=== PATIENT | female | born 1975 | race Caucasian/White ===

== ENCOUNTER 2020-11-01 09:46 | Inpatient (IN) | payer OTHER ==
[~2020-11-01] VITALS: Ht 157.5 cm; Wt 69.5 kg
[2020-11-01 10:48] LABS: BASOPHILS # (AUTO) 0.1 X10'3 (0-0.2); BASOPHILS % (AUTO) 0.4 % (0-1); EOSINOPHILS % (AUTO) 0.2 % (0-6); HEMATOCRIT 48.3 % (35.0-45.0); HEMOGLOBIN 16.2 g/dl (12.0-16.0); LYMPHOCYTES # (AUTO) 1.9 X10'3 (1.1-4.8); LYMPHOCYTES % (AUTO) 9.4 % (21-51); MEAN CORPUSCULAR HEMOGLOBIN 29.4 PG (27.0-31.0); MEAN CORPUSCULAR HGB CONC 33.7 g/dL (33.0-36.5); MEAN CORPUSCULAR VOLUME 87.5 FL (78-98); MEAN PLATELET VOLUME 8.8 FL (7.4-10.4); MONOCYTES # (AUTO) 0.6 X10'3 (0-0.9); NEUTROPHILS # (AUTO) 17.8 X10'3 (1.8-7.7); PLATELET COUNT 279 X10'3 (140-440); RED BLOOD COUNT 5.52 X10'6 (4.20-5.60); RED CELL DISTRIBUTION WIDTH 14.3 % (11.5-14.5); WHITE BLOOD COUNT 20.5 X10'3 (4.5-11.0)
[2020-11-01 10:58] LABS: ALANINE AMINOTRANSFERASE 38 U/L (12-78); ALBUMIN 3.8 G/DL (3.4-5.0); ALBUMIN/GLOBULIN RATIO 1.1 (1.1-1.5); ALKALINE PHOSPHATASE 112 IU/L (46-116); ANION GAP 9 (8-16); ASPARTATE AMINO TRANSFERASE 28 U/L (10-37); BILIRUBIN,TOTAL 0.6 MG/DL (0.1-1.0); BLOOD UREA NITROGEN 10 MG/DL (7-18); CALCIUM 8.7 MG/DL (8.5-10.1); CHLORIDE 106 MMOL/L (99-107); CREATININE 0.83 MG/DL (0.40-0.90); GLUCOSE 98 MG/DL (70-104); LIPASE 59 U/L (73-393); POTASSIUM 4.5 MMOL/L (3.5-5.1); SODIUM 137 MMOL/L (135-145); TOTAL PROTEIN 7.3 G/DL (6.4-8.2); eGFR 74 ML/MIN
[2020-11-01 11:01] LABS: URINE HCG NEGATIVE (NEG)
[2020-11-01 11:04] LABS: CLARITY,URINE SLIGHTLY CLOUDY (Clear); COLOR,URINE YELLOW (Yellow); GLUCOSE, URINE NEGATIVE (Neg); KETONES,URINE NEGATIVE (Neg); LEUKOCYTE ESTERASE ,URINE NEGATIVE (Neg); NITRITES, URINE NEGATIVE (Neg); OCCULT BLOOD,URINE NEGATIVE (Neg); PROTEIN,URINE NEGATIVE (Neg); UROBILINOGEN,URINE 0.2 E.U/dL (0.2-1.0)
[2020-11-01 11:08] LABS: UA COLLECTION TYPE CLN CATCH MIDSTREAM
[2020-11-01 11:13] LABS: BACTERIA,URINE 3+ /HPF (Neg); RBC,URINE 0-2 /HPF (0-2); WBC,URINE 0-4 /HPF (0-4)
[2020-11-01 11:15] LABS: SQUAMOUS EPITHELIAL CELL,UR MODERATE /LPF (FEW)
[2020-11-01] MEDS ORDERED: iohexol 300mg/ml 100ml inj. ONE (12:23)
[2020-11-01] MEDS ORDERED: morphine 4 MG/ML inj SYRINge IV ONE (12:25)
[2020-11-01] MEDS ORDERED: piperacillin/tazo 3.375gm/50ml 50 ML IV ONE (14:05)
[2020-11-01] MEDS ORDERED: magnesium hydroxide 30ml (MOM) UD suspension PO PRN (14:40)
[2020-11-01] MEDS ORDERED: potassium Cl 40MEQ/1/2NS 520ml 520 ML IV PRN ×2 (14:40)
[2020-11-01] MEDS ORDERED: acetaminophen 325mg tablet PO PRN ×2 (14:40)
[2020-11-01] MEDS ORDERED: magnesium 4gm in 100ml NS 100 ML IV PRN (14:40)
[2020-11-01] MEDS ORDERED: morphine 2 MG/ML inj. syringe IV PRN ×2 (14:40)
[2020-11-01] MEDS ORDERED: HYDROcodone/acetaminophen 5mg/325mg tablet PO PRN (14:40)
[2020-11-01] MEDS ORDERED: magnesium Cl slow-release 64mg tablet PO PRN (14:40)
[2020-11-01] MEDS ORDERED: magnesium 2GM in 50ml NS 50 ML IV PRN (14:40)
[2020-11-01] MEDS ORDERED: HYDROmorphone inj. 0.5 MG/0.5 ML DISP.SYRIN IV PRN (14:40)
[2020-11-01] MEDS ORDERED: mag hydrox/Alum hydrox/simeth 30ml oral suspension PO PRN (14:40)
[2020-11-01] MEDS ORDERED: potassium Cl 20 mEq SR tablet PO PRN ×2 (14:40)
[2020-11-01] MEDS: nicotine 14mg patch - 24hr TD SCH (15:35)
[2020-11-01] MEDS ORDERED: piperacillin/tazo 3.375gm/50ml 50 ML IV SCH (16:00)
[2020-11-01] MEDS: normal saline 1000ml 1,000 ML IV SCH (16:48)
[2020-11-01] MEDS ORDERED: NO HOME MEDS (16:58)
--- NOTE | 2020-11-01 18:37 | NUR ---
received report from the ER nurse regarding patient, had the opportunity to ask questions and review the chart.
[2020-11-01 19:15] VITALS: BP 120/75
[2020-11-01] MEDS: K and/or MAG REPLACEMENT MC SCH (20:00)
[2020-11-01] MEDS: metroNIDAZOLE-Flagyl 500mg/NS 100 ML IV SCH (20:36)
[2020-11-01] MEDS: heparin, porcine 5000 units/ml vial SQ SCH (20:36)
[2020-11-01] MEDS ORDERED: temazepam 15mg capsule PO PRN (21:00)
[2020-11-01] MEDS: piperacillin/tazo 3.375gm/50ml 50 ML IV SCH (22:52)
[2020-11-01] MEDS: HYDROcodone/acetaminophen 10/325mg tab PO PRN (23:50)
[2020-11-02 00:10] VITALS: BP 120/83
[2020-11-02] MEDS: normal saline 1000ml 1,000 ML IV SCH ×4 (03:44→22:40)
[2020-11-02] MEDS: piperacillin/tazo 3.375gm/50ml 50 ML IV SCH (05:42)
[2020-11-02] MEDS: HYDROcodone/acetaminophen 10/325mg tab PO PRN ×2 (05:50→12:56)
[2020-11-02 06:11] LABS: BASOPHILS # (AUTO) 0.1 X10'3 (0-0.2); BASOPHILS % (AUTO) 0.4 % (0-1); EOSINOPHILS # (AUTO) 0.1 X10'3 (0-0.9); EOSINOPHILS % (AUTO) 0.3 % (0-6); HEMATOCRIT 39.8 % (35.0-45.0); HEMOGLOBIN 13.2 g/dl (12.0-16.0); LYMPHOCYTES # (AUTO) 1.9 X10'3 (1.1-4.8); MEAN CORPUSCULAR HEMOGLOBIN 29.6 PG (27.0-31.0); MEAN CORPUSCULAR HGB CONC 33.3 g/dL (33.0-36.5); MEAN CORPUSCULAR VOLUME 88.9 FL (78-98); MEAN PLATELET VOLUME 9.1 FL (7.4-10.4); MONOCYTES # (AUTO) 0.4 X10'3 (0-0.9); MONOCYTES % (AUTO) 2.9 % (2-12); NEUTROPHILS # (AUTO) 12.1 X10'3 (1.8-7.7); NEUTROPHILS % (AUTO) 83.4 % (42-75); PLATELET COUNT 201 X10'3 (140-440); RED BLOOD COUNT 4.48 X10'6 (4.20-5.60); RED CELL DISTRIBUTION WIDTH 14.2 % (11.5-14.5); WHITE BLOOD COUNT 14.5 X10'3 (4.5-11.0)
--- NOTE | 2020-11-02 06:20 | NUR ---
Patient in room [facility]. I have received report from OLIVER Gonzalez and had the opportunity to ask questions and assume patient care.
[2020-11-02 06:30] VITALS: BP 131/79
[2020-11-02 06:34] LABS: ALANINE AMINOTRANSFERASE 48 U/L (12-78); ALBUMIN 2.8 G/DL (3.4-5.0); ALBUMIN/GLOBULIN RATIO 0.8 (1.1-1.5); ALKALINE PHOSPHATASE 110 IU/L (46-116); ANION GAP 11 (8-16); ASPARTATE AMINO TRANSFERASE 31 U/L (10-37); BLOOD UREA NITROGEN 9 MG/DL (7-18); BUN/CREATININE RATIO 13.8 (6.6-38.0); CHLORIDE 105 MMOL/L (99-107); CREATININE 0.65 MG/DL (0.40-0.90); GLUCOSE 79 MG/DL (70-104); MAGNESIUM 2.1 MG/DL (1.5-2.4); POTASSIUM 3.9 MMOL/L (3.5-5.1); SODIUM 138 MMOL/L (135-145); TOTAL CARBON DIOXIDE 22.2 MMOL/L (24-32); TOTAL PROTEIN 6.1 G/DL (6.4-8.2); eGFR > 90 ML/MIN
--- NOTE | 2020-11-02 06:47 | NUR ---
Problems reprioritized. Patient report given, questions answered & plan of care reviewed with Ada RN.
[2020-11-02] MEDS: K and/or MAG REPLACEMENT MC SCH ×2 (07:30→19:35)
[2020-11-02] MEDS: nicotine 14mg patch - 24hr TD SCH (08:00)
[2020-11-02] MEDS: heparin, porcine 5000 units/ml vial SQ SCH ×2 (08:00→19:32)
[2020-11-02] MEDS: metroNIDAZOLE-Flagyl 500mg/NS 100 ML IV SCH ×2 (08:25→19:31)
[2020-11-02] MEDS: ondansetron/PF 4mg/2ml inj IV PRN ×2 (08:30→17:55)
[2020-11-02 11:00] VITALS: BP 112/61
--- NOTE | 2020-11-02 18:10 | NUR ---
Problems reprioritized. Patient report given, questions answered & plan of care reviewed with OLIVER Shaw.
--- NOTE | 2020-11-02 18:30 | NUR ---
Patient in room [facility]. I have received report from Charlette BOYD and had the opportunity to ask questions and assume patient care.
[2020-11-02 19:00] VITALS: BP 123/82
[2020-11-02] MEDS: lactobacillus rhamnosus 10,000 MMU CELLS/CAPSULE PO SCH (19:31)
[2020-11-03] VITALS: BP 148/86
[2020-11-03] MEDS: normal saline 1000ml 1,000 ML IV SCH ×3 (01:44→20:19)
[2020-11-03 05:53] LABS: BASOPHILS # (AUTO) 0.1 X10'3 (0-0.2); BASOPHILS % (AUTO) 0.4 % (0-1); EOSINOPHILS % (AUTO) 0.3 % (0-6); HEMATOCRIT 38.7 % (35.0-45.0); HEMOGLOBIN 12.9 g/dl (12.0-16.0); LYMPHOCYTES # (AUTO) 1.3 X10'3 (1.1-4.8); LYMPHOCYTES % (AUTO) 9.6 % (21-51); MEAN CORPUSCULAR HEMOGLOBIN 29.4 PG (27.0-31.0); MEAN CORPUSCULAR HGB CONC 33.3 g/dL (33.0-36.5); MEAN CORPUSCULAR VOLUME 88.1 FL (78-98); MONOCYTES # (AUTO) 0.4 X10'3 (0-0.9); MONOCYTES % (AUTO) 2.9 % (2-12); NEUTROPHILS # (AUTO) 12.1 X10'3 (1.8-7.7); NEUTROPHILS % (AUTO) 86.8 % (42-75); PLATELET COUNT 198 X10'3 (140-440); RED CELL DISTRIBUTION WIDTH 14.3 % (11.5-14.5)
[2020-11-03 06:08] LABS: ALANINE AMINOTRANSFERASE 29 U/L (12-78); ALBUMIN 2.8 G/DL (3.4-5.0); ALBUMIN/GLOBULIN RATIO 0.7 (1.1-1.5); ALKALINE PHOSPHATASE 136 IU/L (46-116); ANION GAP 13 (8-16); ASPARTATE AMINO TRANSFERASE 20 U/L (10-37); BILIRUBIN,TOTAL 1.2 MG/DL (0.1-1.0); BLOOD UREA NITROGEN 6 MG/DL (7-18); CALCIUM 8.3 MG/DL (8.5-10.1); CHLORIDE 104 MMOL/L (99-107); GLUCOSE 81 MG/DL (70-104); MAGNESIUM 1.9 MG/DL (1.5-2.4); POTASSIUM 3.9 MMOL/L (3.5-5.1); SODIUM 138 MMOL/L (135-145); TOTAL CARBON DIOXIDE 21.1 MMOL/L (24-32); TOTAL PROTEIN 6.6 G/DL (6.4-8.2); eGFR > 90 ML/MIN
--- NOTE | 2020-11-03 06:40 | NUR ---
Problems reprioritized. Patient report given, questions answered & plan of care reviewed with Desire BOYD.
--- NOTE | 2020-11-03 06:45 | NUR ---
Patient in room [facility]. I have received report from OLIVER ROUSE and had the opportunity to ask questions and assume patient care.
[2020-11-03 07:00] VITALS: BP 142/91
[2020-11-03] MEDS: K and/or MAG REPLACEMENT MC SCH ×2 (08:00→20:00)
[2020-11-03] MEDS: lactobacillus rhamnosus 10,000 MMU CELLS/CAPSULE PO SCH ×2 (09:20→20:19)
[2020-11-03] MEDS: metroNIDAZOLE-Flagyl 500mg/NS 100 ML IV SCH ×2 (09:20→20:19)
[2020-11-03] MEDS: heparin, porcine 5000 units/ml vial SQ SCH ×2 (09:21→20:21)
[2020-11-03 11:00] VITALS: BP 144/89
--- NOTE | 2020-11-03 18:13 | NUR ---
Patient in room [facility]. I have received report from OLIVER Phipps and had the opportunity to ask questions and assume patient care.
[2020-11-03 18:30] VITALS: BP 130/81
--- NOTE | 2020-11-03 18:54 | NUR ---
Problems reprioritized. Patient report given, questions answered & plan of care reviewed with OLIVER MURILLO.
[2020-11-03] MEDS: HYDROcodone/acetaminophen 10/325mg tab PO PRN (20:20)
[2020-11-04] VITALS: BP 121/83
[2020-11-04] MEDS: normal saline 1000ml 1,000 ML IV SCH (04:28)
--- NOTE | 2020-11-04 06:41 | NUR ---
Problems reprioritized. Patient report given, questions answered & plan of care reviewed with OLIVER Houser.
--- NOTE | 2020-11-04 06:46 | NUR ---
Patient in room [facility]. I have received report from Krissy BOYD and had the opportunity to ask questions and assume patient care.
[2020-11-04 06:47] LABS: BASOPHILS % (AUTO) 0.3 % (0-1); EOSINOPHILS # (AUTO) 0.1 X10'3 (0-0.9); EOSINOPHILS % (AUTO) 1.5 % (0-6); HEMATOCRIT 37.1 % (35.0-45.0); HEMOGLOBIN 12.5 g/dl (12.0-16.0); LYMPHOCYTES # (AUTO) 1.9 X10'3 (1.1-4.8); LYMPHOCYTES % (AUTO) 19.9 % (21-51); MEAN CORPUSCULAR HEMOGLOBIN 29.3 PG (27.0-31.0); MEAN CORPUSCULAR HGB CONC 33.6 g/dL (33.0-36.5); MEAN CORPUSCULAR VOLUME 87.2 FL (78-98); MEAN PLATELET VOLUME 8.8 FL (7.4-10.4); MONOCYTES # (AUTO) 0.6 X10'3 (0-0.9); MONOCYTES % (AUTO) 5.9 % (2-12); NEUTROPHILS % (AUTO) 72.4 % (42-75); PLATELET COUNT 214 X10'3 (140-440); RED BLOOD COUNT 4.25 X10'6 (4.20-5.60); RED CELL DISTRIBUTION WIDTH 14.1 % (11.5-14.5); WHITE BLOOD COUNT 9.6 X10'3 (4.5-11.0)
[2020-11-04 06:56] LABS: ALANINE AMINOTRANSFERASE 33 U/L (12-78); ALBUMIN 2.6 G/DL (3.4-5.0); ALBUMIN/GLOBULIN RATIO 0.7 (1.1-1.5); ALKALINE PHOSPHATASE 151 IU/L (46-116); ANION GAP 9 (8-16); ASPARTATE AMINO TRANSFERASE 19 U/L (10-37); BILIRUBIN,TOTAL 0.9 MG/DL (0.1-1.0); BLOOD UREA NITROGEN 5 MG/DL (7-18); BUN/CREATININE RATIO 9.1 (6.6-38.0); CALCIUM 8.3 MG/DL (8.5-10.1); CHLORIDE 108 MMOL/L (99-107); CREATININE 0.55 MG/DL (0.40-0.90); GLUCOSE 82 MG/DL (70-104); MAGNESIUM 1.9 MG/DL (1.5-2.4); POTASSIUM 3.8 MMOL/L (3.5-5.1); SODIUM 140 MMOL/L (135-145); TOTAL CARBON DIOXIDE 22.7 MMOL/L (24-32); TOTAL PROTEIN 6.5 G/DL (6.4-8.2); eGFR > 90 ML/MIN
[2020-11-04 07:30] VITALS: BP 130/83
[2020-11-04] MEDS: K and/or MAG REPLACEMENT MC SCH (08:00)
[2020-11-04] MEDS: metroNIDAZOLE-Flagyl 500mg/NS 100 ML IV SCH (08:00)
[2020-11-04] MEDS: heparin, porcine 5000 units/ml vial SQ SCH (08:00)
[2020-11-04] MEDS: lactobacillus rhamnosus 10,000 MMU CELLS/CAPSULE PO SCH (08:41)
[2020-11-04] MEDS ORDERED: LEVO500T89 PO (08:51)
[2020-11-04] MEDS ORDERED: METR500T PO (08:51)
--- NOTE | 2020-11-04 10:50 | NUR ---
Pt discharged at 1050 from [facility]. Iv removed, tip intact, no complications. Belongings sent with pt. Education provided about colitis, and clear liquid diet. Pt encouraged to follow up with PCP within a week. Patient discharged in stable condition with in private vehicle.
[2020-11-04 11:52] LABS: C DIFF ANTIGEN NEGATIVE (NEGATIVE); C DIFF SPECIMEN=DIARRHEA? ACCEPTABLE; C DIFFICILE TOXINS A&B NEGATIVE (Neg)
== END 2020-11-04 10:55 | disposition home or self-care (01) | DRG 872 ==
LOC: ER 09:47 → ED HOLD 14:39 → SUR 3N 18:20
PROVIDERS: ADMIT Internal Medicine; ATTEND Internal Medicine
PROC: BW211ZZ Computerized Tomography (CT Scan) of Abdomen and Pelvis using Low Osmolar Contrast (ICD-10-PCS; principal; 2020-11-01)
DX: A41.9 Sepsis, unspecified organism (principal); A09 Infectious gastroenteritis and colitis, unspecified; N39.0 Urinary tract infection, site not specified; F17.210 Nicotine dependence, cigarettes, uncomplicated
CPT/HCPCS: 36415; 74177; 80053; 81001; 81025; 83605; 83690; 83735; 85025; 87040; 87081; 87088; 87324; 87449; 96365; 96375; 99285; G0378; J1170; J1644; J2270; J2405; J2543; J3490; J7030; Q9967